=== PATIENT | female | born 1985 | race Caucasian/White ===

== ENCOUNTER 2020-01-20 08:44 | Emergency (ER) | payer BC ==
--- NOTE | 2020-01-20 10:54 | ER Document Report ---
ED General - General Chief Complaint: Leg Pain Stated Complaint: RIGHT LEG PAIN Time Seen by Provider: 01/20/20 10:12 Primary Care Provider: PAZ VAZQUEZ DO [Primary Care Provider] - Follow up as needed - HPI Notes: Chief complaint: "Bump" right lower leg History of present illness: 34-year-old female followed by custodial laborer with a history of STILLS DISEASE now presents with a "bump" which is come up on her right lower leg over the past several days. She denies any trauma. She denies any obvious insect sting. She is concerned that this might be a blood clot. She denies any past history of thromboembolic disease. She denies any chest pain, shortness of breath or hemoptysis. She is a non-smoker. - Related Data Allergies/Adverse Reactions: NSAIDS (Non-Steroidal Anti-Inflamma Allergy (Verified 01/20/20 09:32) Past Medical History - General Information source: Patient, [facility] Records - Social History Smoking Status: Former Smoker Chew tobacco use (# tins/day): No Frequency of alcohol use: Occasional Drug Abuse: Marijuana Family History: Reviewed & Not Pertinent - Past Medical History Cardiac Medical History: Denies: Hx DVT, Hx Pulmonary Embolism Endocrine Medical History: Denies: Hx Diabetes Mellitus Type 1, Hx Diabetes Mellitus Type 2 Musculoskeletal Medical History: Reports Hx Arthritis Psychiatric Medical History: Reports: Hx Depression Past Surgical History: Reports: Hx Open Heart Surgery - 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 HENT: Negative for sore throat. Eyes: Negative for visual changes. Cardiovascular: Negative for chest pain. Respiratory: Negative for shortness of breath. Gastrointestinal: Negative for abdominal pain, vomiting or diarrhea. Genitourinary: Negative for dysuria. Musculoskeletal: Negative for back pain. Skin: Negative for rash. Neurological: Negative for headaches, weakness or numbness. 10 point ROS negative except as marked above and in HPI. Physical Exam - Vital signs Vitals: Temp Pulse Resp BP Pulse Ox 97.8 F 79 16 115/66 100 01/20/20 08:51 01/20/20 08:51 01/20/20 08:51 01/20/20 08:51 01/20/20 08:51 - Notes Notes: GENERAL: Slender female approximately stated age appearing in no acute distress. SKIN: Good turgor no rashes. HEAD: Normocephalic atraumatic. EYES: PERRLA. EOMI. Conjunctivae and sclerae clear. EARS: CANALS AND TMS CLEAR. NOSE: CLEAR. MOUTH: Moist mucosa. Good dentition. No stridor or edema. No drooling. NECK: Supple. No masses or thyromegaly. No adenopathy. Carotids 2+ without bruits. No JVD. BACK: Symmetrical without tenderness. CHEST: Respirations unlabored. Breath sounds clear and symmetrical. HEART: Regular rhythm. No murmur gallop or rub. ABDOMEN: Soft nontender without masses, organomegaly or rebound. Bowel sounds normally active. No bruits. GENITALIA: Deferred. EXTREMITIES: Patient has multiple mildly dilated superficial varicosities of both lower legs. No edema. No calf tenderness. 1.5 cm superficial tender nodule medial lateral aspect right calf proximally. Cap refill less than 1.5 seconds. Dorsalis pedis and posterior tibial pulses 3+ and symmetrical. NEUROLOGICAL: GCS 15. Alert and oriented x3. Normal gait. Fluent speech. Cranial nerves II through XII intact. Sensorimotor and cerebellar normal. Normal tone. PSYCHIATRIC: Appropriate affect. Course - Re-evaluation Re-evalutation: 01/20/20 13:07 Clinically I thought this patient had a mild superficial thrombophlebitis. Ultrasound of the affected extremity was obtained and this was confirmatory. Patient does not have any evidence of a DVT. This lady is allergic to NSAIDs and aspirin. I recommended that she get off her feet and elevate the affected extremity and apply moist heat intermittently. Also suggest use of support stockings. Recommend that she ask her primary care physician to refer her to a vein clinic for follow-up. Findings, clinical impression and plan of treatment have been discussed with patient/family. Understanding of current findings and recommendations has been acknowledged by them and there is agreement regarding disposition and follow-up. - Vital Signs Vital signs: Temp Pulse Resp BP Pulse Ox 97.8 F 79 16 115/66 100 01/20/20 08:51 01/20/20 08:51 01/20/20 08:51 01/20/20 08:51 01/20/20 08:51 - Laboratory Result Diagrams: 01/20/20 10:52 01/20/20 10:52 Laboratory results interpreted by me: 01/20/20 10:52 Alkaline Phosphatase 33 L - Diagnostic Test Radiology reviewed: Image reviewed, Reports reviewed Radiology results interpreted by me: 01/20/20 13:07 Venous Doppler Study 01/20/20 10:46 IMPRESSION: NO EVIDENCE DVT OR SVT IN THE RIGHT LEG. Discharge - Discharge Clinical Impression: Superficial thrombophlebitis right calf Condition: Stable Disposition: HOME, SELF-CARE Additional Instructions: You have superficial thrombophlebitis which is an inflammation of one of the surface blood vessels of your lower leg. Recommended treatment at this time includes elevating the leg and applying moist compresses for about 15 minutes 4 times daily. Tylenol as needed for pain. Follow-up with your primary care physician within the next 3 to 5 days and discuss potential need for referral to a vein clinic for further evaluation and long-term treatment. Return here as needed for new or worsening symptoms: Pain that is worsening or unimproved Uncontrolled vomiting High fever or shaking chills Overall worsening Referrals: PAZ VAZQUEZ DO [Primary Care Provider] - Follow up as needed
[2020-01-20 11:12] LABS: INTERNATIONAL RATION (INR) 0.98; PROTHROMBIN TIME 13.2 SEC (11.4-15.4)
[2020-01-20 11:15] LABS: ABSOLUTE LYMPHOCYTES (AUTO) 0.8 10^3/uL (0.5-4.7); ABSOLUTE MONOCYTES (AUTO) 0.4 10^3/uL (0.1-1.4); ABSOLUTE NEUT (AUTO) 4.3 10^3/uL (1.7-8.2); BASOPHILS % (AUTO) 0.3 % (0-2); EOSINOPHILS % (AUTO) 0.7 % (0-6); HEMATOCRIT 39.6 % (36.0-47.0); HEMOGLOBIN 13.7 g/dL (12.0-15.5); LYMPHOCYTES % (AUTO) 14.4 % (13-45); MEAN CORPUSCULAR HEMOGLOBIN 31.9 pg (27.0-33.4); MEAN CORPUSCULAR HGB CONC 34.6 g/dL (32.0-36.0); MEAN CORPUSCULAR VOLUME 92 fl (80-97); MONOCYTES % (AUTO) 7.2 % (3-13); PLATELET COUNT 237 10^3/uL (150-450); RED BLOOD COUNT 4.29 10^6/uL (3.72-5.28); SEGMENTED NEUTROPHILS % (AUTO) 77.4 % (42-78); TOTAL CELLS COUNTED % (AUTO) 100 %; WHITE BLOOD COUNT 5.5 10^3/uL (4.0-10.5)
[2020-01-20 11:16] LABS: PARTIAL THROMBOPLASTIN TIME 29.9 SEC (23.5-35.8)
[2020-01-20 11:28] LABS: ALKALINE PHOSPHATASE 33 U/L (38-126); ANION GAP 12 (5-19); ASPARTATE AMINO TRANSFERASE 20 U/L (14-36); BLOOD UREA NITROGEN 14 mg/dL (7-20); CALCIUM 9.9 mg/dL (8.4-10.2); CARBON DIOXIDE 25 mmol/L (22-30); CHLORIDE 105 mmol/L (98-107); GLUCOSE 97 mg/dL (75-110); TOTAL PROTEIN 7.8 g/dL (6.3-8.2)
--- NOTE | 2020-01-20 12:53 | RADIOLOGY REPORT (SQ) ---
EXAM DESCRIPTION: VENOUS UNILATERAL LOWER IMAGES COMPLETED DATE/TIME: 01/20/2020 12:37 pm REASON FOR STUDY: pain/swelling right calf COMPARISON: None. TECHNIQUE: Dynamic and static coughlin scale and color images acquired of the right leg venous system. S elected spectral images acquired with additional compression and augmentation maneuvers. The contrala teral common femoral vein and saphenofemoral junction were also imaged. Images stored on PACS. LIMITATIONS: None. FINDINGS: COMMON FEMORAL: Normal phasicity, compression and augmentation. No visualized echogenic ma terial on coughlin scale. No defects on color images. FEMORAL: Normal compression and augmentation. No visualized echogenic material on coughlin scale. No defe cts on color images. POPLITEAL: Normal compression, augmentation. No visualized echogenic material on coughlin scale. No defec ts on color images. CALF VESSELS: Normal compression, augmentation. No visualized echogenic material on coughlin scale. No de fects on color images. GSV and SSV: Normal compression, augmentation. No visualized echogenic material on coughlin scale. No def ects on color images. ANY DEEP VENOUS INSUFFICIENCY: Not evaluated. ANY EVIDENCE OF POPLITEAL CYST: No. OTHER: No other significant finding. CONTRALATERAL COMMON FEMORAL VEIN AND SAPHENOFEMORAL JUNCTION: Normal phasicity, compression and augmentation. No visualized echogenic material on coughlin scale. No de fects on color images. IMPRESSION: NO EVIDENCE DVT OR SVT IN THE RIGHT LEG. TECHNICAL DOCUMENTATION: JOB ID: [id number] [employer]- All Rights Reserved Reading location - IP/workstation name: [email or web address]
[2020-01-20 13:18] VITALS: BP 100/64
== END 2020-01-20 13:19 | disposition home or self-care (01) ==
LOC: ER 08:44
DX: I80.3 Phlebitis and thrombophlebitis of lower extremities, unspecified (principal); I83.93 Asymptomatic varicose veins of bilateral lower extremities; F12.10 Cannabis abuse, uncomplicated; Z87.891 Personal history of nicotine dependence; Z88.8 Allergy status to other drugs, medicaments and biological substances
CPT/HCPCS: 36415; 80053; 85025; 85610; 85730; 93971; 99284